=== PATIENT | female | born 1960 | race Caucasian/White ===

== ENCOUNTER 2023-08-13 09:51 | Outpatient (AMB) | payer OTHER, SELFPAY ==
--- NOTE | 2023-08-13 09:53 | A.OFFPC_ITS ---
Vital Signs 08/13/23 09:54 Height 5 ft 3 in Weight 156 lb 2 oz BMI 27.7 BP 138/84 Blood Pressure Location Lt brachial Position Sitting Pulse 91 Pulse Source Pulse Oximeter Pulse Oximetry (%) 95 Oxygen Delivery Method Room Air Intake Visit Reasons: New patient-req physical Intake Note: Pt presents to the office today for a new patient requesting a physical. Allergies No Known Allergies Allergy (Verified 08/13/23 09:56) Tobacco use date assessed: 08/13/23 Fall risk assessment: 1 Fall in past year Last assessed Fall Risk: 08/13/23 Dental Screening Dental Screen Date: 08/13/23 Did you have a dental visit in the last 12 months?: Yes Did you have a dental problem in the last 6 months where you did not have access to dental care?: No Was dental information given to patient?: Patient has dentist HPI New patient-req physical HPI Details New patient Prior PCP: Dr Manriquez? [facility] Last office visit/CPE: >1 yr Acute issue(s): L posterior knee pain R great toe pain with safety shoes needed for work. PMHx: HLD, anxiety/depression, colon polyps followed q 3 years. SurgHx: FHx: Mom: HTN, HLD, Lymphoma. Dad: CAD, RI, Cardiac valves. DM, HTN, HLD SocHx: Smokes 5-6 a day. EtOH 1-2 drinks occasionally. No drugs. [facility] Medical History (Updated 08/13/23 @ 10:54 by Harry Fuller) High cholesterol Hx of mammogram (~2021) Surgical History (Updated 08/13/23 @ 10:22 by Karie Peterson MA) H/O colonoscopy (~2021) H/O removal of cyst Family History (Updated 08/13/23 @ 10:24 by Karie Peterson MA) Father Hypertension Diabetes High cholesterol Mother Hypertension Lymphoma Thyroid disorder Social History (Updated 08/13/23 @ 09:58 by Karie Peterson MA) Household Members: None Housing: House Alcohol intake: current Alcohol intake frequency: holidays/special occasions only Patient Tobacco Use Status: Current everyday Tobacco user Cigarettes Per Day: 6 Years Smoked: 12 Current occupational status: employed 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 1. Little interest or pleasure in doing things: not at all 2. Feeling down, depressed, or hopeless: not at all 3. Trouble falling or staying asleep, or sleeping too much: several days 4. Feeling tired or having little energy: more than half the days 5. Poor appetite or overeating: not at all 6. Feeling bad about yourself - or that you are a failure or have let yourself or your family down: several days 7. Trouble concentrating on things, such as reading the newspaper or watching television: not at all 8. Moving or speaking so slowly that other people could have noticed. Or the opposite - being so fidgety or restless that you have been moving around a lot more than usual: not at all 9. Thoughts that you would be better off or of hurting yourself in some way: not at all Total score: 4 Depression Screening Interpretation: Negative Depression Screening Done: Yes 95582 - PHQ-9 Billing: Yes Source: Developed by Drs. Manuel Abdul, Lucretia Kumar, Sean Jurado and colleagues, with an educational shivam from [employer]. Thrive Questionnaire Date Thrive assessed: 08/13/23 I am a: Patient What is your living situation today?: I have a steady place to live Within the past 12 months, did the food you bought not last and you didn't have the money to get more?: Never true Within the past 12 months, did you worry whether your food would run out before you got money to buy more?: Never true Do you have trouble paying for medicines?: No Do you have trouble getting transportation to medical appointments?: No Do you have trouble paying your heating and electricity bill?: No Do you have trouble taking care of your child, family member or friend?: No Do you have trouble with day-to-day activities such as bathing, preparing meals, shopping, managing finances, etc.?: No Are you currently unemployed and looking for a job?: No Are you interested in more education?: No THRIVE Score: 0 AUDIT C Alcohol Use Questionnaire (AUDIT-C) 1. How often do you have a drink containing alcohol?: Monthly or less 2. How many drinks containing alcohol do you have on a typical day when you are drinking?: 1 or 2 3. How often do you have six or more drinks on one occasion?: Never Total Score: 1 RON-7 AMB Questionnaire RON-7 Date RON - 7 assessed: 08/13/23 Feeling nervous, anxious, or on edge: 0 = Not at all Not being able to stop or control worryin = Not at all Worrying too much about different things: 1 = Several days Trouble relaxin = Not at all Being so restless that it is hard to sit still: 0 = Not at all Becoming easily annoyed or irritable: 1 = Several days Feeling afraid as if something awful might happen: 0 = Not at all Total RON-7 score (0-4 normal; 5-9 mild; 10-14 moderate; 15-21 severe): 2 Source: Developed by Drs. Manuel Abdul, Lucretia Kumar, Sean Jurado and colleagues, with an educational shivam from [employer]. RON-7 Assessment Billing RON-7 Assessment Tool: RON-7 Assessment 06805 Physical exam (Primary Care) Vital Signs: Last Vital Signs Pulse 91 08/13/23 09:54 BP 138/84 08/13/23 09:54 Pulse Ox 95 08/13/23 09:54 Oxygen Delivery Method Room Air 08/13/23 09:54 BMI result Body Mass Index 27.7 Tobacco/Smoking Status: Tobacco use Status Tobacco use date assessed 08/13/23 08/13/23 10:03 Patient Tobacco Use Status Current everyday Tobacco 08/13/23 10:03 PHQ-9: PHQ-9 Score PHQ-9: Total score 4 08/13/23 10:32 Depression Screening Interpretation: Negative Thrive Assessment: Date of Thrive Assessment Date Thrive assessed 08/13/23 08/13/23 10:03 Assessment and Plan Assessment & Plan (1) Left knee pain: Code(s): M25.562 - Pain in left knee Plan: Possible?Mcwilliams's?cyst?versus?varicosity?verses?chronic?muscle?strain/tendinitis. Check?ultrasound?to?rule?out?varicosity?or?Mcwilliams's?cyst May?need?physical?therapy Can?use?ibuprofen?and?compression?stockings (2) Smoker: Code(s): F17.200 - Nicotine dependence, unspecified, uncomplicated Plan: She?is?working?on?quitting.??Already?taking?bupropion Encouraged?cessation (3) Anxiety with depression: Code(s): F41.8 - Other specified anxiety disorders Plan: Stable Continue?bupropion (4) Hyperlipidemia: Code(s): E78.5 - Hyperlipidemia, unspecified Plan: She?is?on?atorvastatin Check?lipid (5) Screening for colon cancer: Code(s): Z12.11 - Encounter for screening for malignant neoplasm of colon Plan: History?of?polyp?and?followed?Q?3?year Due?again?in?about?a?year?and?half Prior?gastroenter[place]so?will?need?a?local?referral. (6) Pain of right great toe: Code(s): M79.674 - Pain in right toe(s) Plan: Pain?at?lateral?aspect?of?right?great?toe?and?patient?needs?to?wear?safety?shoes ?at?work Referred?to?Podiatry (7) Wrist pain: Code(s): M25.539 - Pain in unspecified wrist Plan: Bilateral?wrist?and?forearm?pain Phalen?and?Tinel's?signs?negative Advised?wrist?braces?and?ibuprofen If?not?improving?will?refer?for?occupational?therapy (8) Posterior left knee pain: Code(s): M25.562 - Pain in left knee Plan: As?above (9) Laboratory exam ordered as part of routine general medical examination: Code(s): Z00.00 - Encounter for general adult medical examination without abnormal findings Plan: Check?labs (10) Breast cancer screening by mammogram: Code(s): Z12.31 - Encounter for screening mammogram for malignant neoplasm of breast Plan: Ordered mammogram Orders: Orders Lipid Panel Today Z00.00 - Encounter for general adult medical examination without abnormal findings Microalbumin, Random (w Creat) Today I10 - Essential (primary) hypertension US extremity nonvascular Today M25.562 - Pain in left knee Comprehensive [place]. Panel Fast Today Z00.00 - Encounter for general adult medical examination without abnormal findings Complete Blood Count Auto Diff Today Z00.00 - Encounter for general adult medical examination without abnormal findings TSH reflex Free T4 Today Z00.00 - Encounter for general adult medical examination without abnormal findings UA and rflx microscopic Today Z00.00 - Encounter for general adult medical examination without abnormal findings MM tomosynthesis screening BI Today Z12.31 - Encounter for screening mammogram for malignant neoplasm of breast Referrals Podiatry Referral M79.674 - Pain in right toe(s) Coding Level of Care Code New Pt Level 3 (89241) Diagnoses Left knee pain M25.562 Smoker F17.200 Anxiety with depression F41.8 Hyperlipidemia E78.5 Screening for colon cancer Z12.11 Pain of right great toe M79.674 Wrist pain M25.539 Posterior left knee pain M25.562 Laboratory exam ordered as part of routine general medical examination Z00.00 Breast cancer screening by mammogram Z12.31 Additional Codes RON-7 Assessment Billing - RON-7 Assessment Tool: RON-7 Assessment [id number] ([id number])
[2023-08-13 09:54] VITALS: BP 138/84; PULSE 91; O2SAT 95; BMI 27.7
== END 2023-08-13 10:56 | disposition home or self-care (01) ==
PROVIDERS: PCP Family Medicine; Visit Provider Family Medicine
DX: M25.562 Pain in left knee (principal); F17.210 Nicotine dependence, cigarettes, uncomplicated; F41.8 Other specified anxiety disorders; E78.5 Hyperlipidemia, unspecified; M25.532 Pain in left wrist; M79.674 Pain in right toe(s); M25.531 Pain in right wrist; Z12.11 Encounter for screening for malignant neoplasm of colon; Z12.31 Encounter for screening mammogram for malignant neoplasm of breast
CPT/HCPCS: 99203

== ENCOUNTER 2023-08-21 09:46 | Outpatient (REF) | payer OTHER, SELFPAY ==
[2023-08-21 11:31] LABS: MANUAL DIFF FLAG NO
[2023-08-21 11:40] LABS: Basophils Absolute Auto 0.1 X10*3/uL (0.0-0.2); Eosinophils Absolute Auto 0.3 X10*3/uL (0.0-0.4); Eosinophils Percent Auto 3.8 % (0-4); Hematocrit 42.5 % (37.0-47.0); Hemoglobin 14.2 g/dl (12.0-16.0); Imm Gran Abs Auto 0.02 X10*3/uL (0.00-0.03); Imm Gran Pct Auto 0.3 % (0.0-0.4); Lymphocytes Absolute Auto 2.9 X10*3/uL (1.2-4.9); Lymphocytes Percent Auto 37.6 % (20-40); Mean Corpuscular HGB Conc 33.4 g/dl (31.0-35.0); Mean Corpuscular Hemoglobin 31.7 pg (27.0-33.0); Mean Corpuscular Volume 94.9 fL (80.0-98.0); Mean Platelet Volume 9.1 fL (9.4-12.3); Monocytes Absolute Auto 0.8 X10*3/uL (0.1-1.2); Monocytes Percent Auto 9.8 % (2-11); Neutrophils Absolute Auto 3.7 x10*3/uL (2.0-8.3); Neutrophils Percent Auto 47.5 % (45-73); Platelet Count 370 X10*3/uL (160-400); Red Blood Count 4.48 X10*6/uL (4.20-5.50); Red Cell Distribution Width 12.8 % (11.0-16.0); White Blood Count 7.7 X10*3/uL (4.8-10.8)
[2023-08-21 12:07] LABS: Alanine Aminotransferase 22 U/L (0-31); Albumin Level 4.1 g/dL (3.5-5.0); Alkaline Phosphatase 58 U/L (39-117); Anion Gap 14 (12-20); Aspartate Amino Transferase 21 U/L (5-31); Bilirubin Total 0.7 mg/dL (0.0-1.0); Blood Urea Nitrogen 11 mg/dL (9-16); Calcium 9.5 mg/dL (8.4-10.2); Carbon Dioxide 27 mmol/L (22-29); Chloride 107 mmol/L (96-108); Cholesterol 142 mg/dL (<200); Estimated Glomerular Filt Rate > 60; Glucose Fasting 88 mg/dL (60-99); HDL Cholesterol 46 mg/dL (>40); LDL Cholesterol Calculated 77 mg/dL (<100); Potassium 3.8 mmol/L (3.3-5.1); Sodium 144 mmol/L (135-145); Total Protein 7.2 g/dL (6.5-8.0); Triglycerides 98 mg/dL (<150)
[2023-08-21 12:10] LABS: TSH reflex Free T4 1.86 uIU/mL (0.32-4.0)
== END 2023-08-21 09:47 | disposition home or self-care (01) ==
LOC: HO.WFDLDS 09:46
PROVIDERS: Visit Provider Family Medicine
DX: Z00.00 Encounter for general adult medical examination without abnormal findings (principal); Z20.2 Contact with and (suspected) exposure to infections with a predominantly sexual mode of transmission
CPT/HCPCS: 36415; 80053; 80061; 84443; 85025

== ENCOUNTER 2023-09-11 11:05 | Outpatient (REF) | payer OTHER, SELFPAY ==
[2023-09-11 14:09] LABS: Appearance Urine Clear; Color Urine Yellow; Glucose Urine UA Negative (Negative); Leukocyte Esterase Urine Trace (Negative); Nitrite Urine Negative (Negative); PH 6.5 (5.0-9.0); UMIC TRIGGER UA YES; Urine Blood Negative (Negative); Urine Ketones Negative (Negative); Urine Protein Negative (Neg-Trace)
[2023-09-11 14:15] LABS: Bacteria Urine None Seen (None Seen); Hyaline Casts Urine 0-2 /LPF (0-2); RBC Urine 0-2 /HPF (0-2); Squamous Epithelial Cell Urine 0-2 /HPF (0-2); WBC Urine 0-5 /HPF (0-5)
[2023-09-11 15:41] LABS: Creatinine Urine 57.88 mg/dL; Microalbumin Urine < 5.0 mg/L
== END 2023-09-11 11:06 | disposition home or self-care (01) ==
LOC: HO.WFDLDS 11:05
PROVIDERS: Visit Provider Family Medicine
DX: I10 Essential (primary) hypertension (principal)
CPT/HCPCS: 81001; 82043; 82570

== ENCOUNTER 2023-09-25 15:45 | Outpatient (REF) | payer OTHER, SELFPAY ==
--- NOTE | ~2023-09-25 | US_ITS ---
EXAMINATION: US EXTREMITY, NONVASCULAR CLINICAL INFORMATION: Posterior left knee pain COMPARISON: None available. TECHNIQUE: Real-time ultrasound used to scan the left posterior knee. Permanent documented images obtained. FINDINGS: No fluid collections identified. Patency of the popliteal artery and vein demonstrated. US/US extremity nonvascular IMPRESSION: Unremarkable examination.
== END 2023-09-25 15:46 | disposition home or self-care (01) ==
LOC: HO.US 15:45
PROVIDERS: PCP Family Medicine; Visit Provider Family Medicine
DX: M25.562 Pain in left knee (principal)
CPT/HCPCS: 76882

== ENCOUNTER 2023-10-02 15:06 | Outpatient (REF) | payer OTHER, SELFPAY ==
--- NOTE | ~2023-10-02 | MM_ITS ---
EXAMINATION: MM SCREENING DIGITAL BREAST TOMOSYNTHESIS, BILATERAL CLINICAL INFORMATION: Screening. Asymptomatic. COMPARISON: Mammography: There are no prior mammograms for comparison. TECHNIQUE: Digital breast tomosynthesis is performed in both the craniocaudal and mediolateral oblique views along with computer-aided detection (CAD). Synthesized 2D images are generated from the tomosynthesis. FINDINGS: The breasts are almost entirely fatty (ACR BI-RADS breast composition Category a). There are no significant masses, abnormal calcifications, or other abnormalities. MM/MM tomosynthesis screening BI IMPRESSION: No mammographic evidence of malignancy. ASSESSMENT: BI-RADS BI-RADS 1 - Negative RECOMMENDATION: Routine annual mammography screening. 1 year F/U This examination should not preclude the clinical evaluation of a suspicious palpable abnormality. This patient's information was entered into a reminder system with a target due date for their next mammogram.
== END 2023-10-02 15:07 | disposition home or self-care (01) ==
LOC: HO.MAMMO 15:06
PROVIDERS: PCP Family Medicine; Visit Provider Family Medicine
DX: Z12.31 Encounter for screening mammogram for malignant neoplasm of breast (principal)
CPT/HCPCS: 77063; 77067

== ENCOUNTER → 2023-10-02 15:15 | Outpatient (BNV) | payer OTHER, SELFPAY | PROVIDERS: PCP Family Medicine; Visit Provider Radiology Diagnostic Radiology | DX: Z12.31 Encounter for screening mammogram for malignant neoplasm of breast (principal) | CPT/HCPCS: 77063; 77067 ==

== ENCOUNTER 2023-12-11 11:54 | Outpatient (AMB) | payer OTHER, SELFPAY ==
--- NOTE | 2023-12-11 11:57 | A.OFFPC_ITS ---
Vital Signs 12/11/23 11:58 Height 5 ft 3 in Weight 148 lb 2 oz BMI 26.2 BP 118/75 Blood Pressure Location Lt brachial Position Sitting Pulse 80 Pulse Source Pulse Oximeter Pulse Oximetry (%) 97 Oxygen Delivery Method Room Air Intake Visit Reasons: CPE with f/u labs and health maint. Intake Note: Patient is here for her physical today, and follow up on labs and health maint enance. Patient would like refills on her meds today. Allergies No Known Allergies Allergy (Verified 12/11/23 12:22) Medication List - Last Reconciled 12/11/23 by Mane Muñiz MD atorvastatin 20 mg PO DAILY bupropion HCl XL 300 mg PO QAM Tobacco use date assessed: 12/11/23 Fall risk assessment: No Falls in past year Last assessed Fall Risk: 12/11/23 Dental Screening Dental Screen Date: 08/13/23 HPI CPE with f/u labs and health maint. HPI Details 63 y/o female presents for a CPE with f/ u labs and health maintenance. Labs were drawn 08/21/23. Reviewed labs with pt. Triglycerides 98. TC 142. LDL 77. HDL 46. She is on artovastatin 20mg daily. She reports she continues to smoke about 6 cigarettes a day. She states she is motivated to quit. Pt reports L knee pain. [facility] Medical History (Updated 12/11/23 @ 13:33 by Harry Fuller) High cholesterol Hx of mammogram (~2021) Surgical History (Updated 08/13/23 @ 10:22 by Karie Peterson CMA) H/O colonoscopy (~2021) H/O removal of cyst Family History (Updated 08/13/23 @ 10:24 by Karie Peterson CMA) Father Hypertension Diabetes High cholesterol Mother Hypertension Lymphoma Thyroid disorder Social History (Updated 08/13/23 @ 09:58 by Karie Peterson CMA) Household Members: None Housing: House Alcohol intake: current Alcohol intake frequency: holidays/special occasions only Patient Tobacco Use Status: Current everyday Tobacco user Cigarettes Per Day: 6 Years Smoked: 12 e-Cigarette/Vaping Use: Never Used Current occupational status: employed 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 1. Little interest or pleasure in doing things: not at all 2. Feeling down, depressed, or hopeless: not at all 3. Trouble falling or staying asleep, or sleeping too much: not at all 4. Feeling tired or having little energy: not at all 5. Poor appetite or overeating: not at all 6. Feeling bad about yourself - or that you are a failure or have let yourself or your family down: not at all 7. Trouble concentrating on things, such as reading the newspaper or watching television: not at all 8. Moving or speaking so slowly that other people could have noticed. Or the opposite - being so fidgety or restless that you have been moving around a lot more than usual: not at all 9. Thoughts that you would be better off or of hurting yourself in some way: not at all Total score: 0 Depression Screening Interpretation: Negative Depression Screening Done: Yes 25792 - PHQ-9 Billing: Yes Source: Developed by Drs. Manuel Abdul, Lucretia Kumar, Sean Jurado and colleagues, with an educational shivam from [employer]. Thrive Questionnaire Date Thrive assessed: 08/13/23 I am a: Patient What is your living situation today?: I have a steady place to live Within the past 12 months, did the food you bought not last and you didn't have the money to get more?: Never true Within the past 12 months, did you worry whether your food would run out before you got money to buy more?: Never true Do you have trouble paying for medicines?: No Do you have trouble getting transportation to medical appointments?: No Do you have trouble paying your heating and electricity bill?: No Do you have trouble taking care of your child, family member or friend?: No Do you have trouble with day-to-day activities such as bathing, preparing meals, shopping, managing finances, etc.?: No Are you currently unemployed and looking for a job?: No Are you interested in more education?: No THRIVE Score: 0 AUDIT C Alcohol Use Questionnaire (AUDIT-C) 1. How often do you have a drink containing alcohol?: Monthly or less 2. How many drinks containing alcohol do you have on a typical day when you are drinking?: 1 or 2 3. How often do you have six or more drinks on one occasion?: Never Total Score: 1 RON-7 AMB Questionnaire RON-7 Date RON - 7 assessed: 08/13/23 Feeling nervous, anxious, or on edge: 0 = Not at all Not being able to stop or control worryin = Not at all Worrying too much about different things: 0 = Not at all Trouble relaxin = Not at all Being so restless that it is hard to sit still: 0 = Not at all Becoming easily annoyed or irritable: 0 = Not at all Feeling afraid as if something awful might happen: 0 = Not at all Total RON-7 score (0-4 normal; 5-9 mild; 10-14 moderate; 15-21 severe): 0 Source: Developed by Drs. Manuel Abdul, Lucretia Kumar, Sean Jurado and colleagues, with an educational shivam from [employer]. RON-7 Assessment Billing RON-7 Assessment Tool: RON-7 Assessment 59908 Review of Systems Const Denies chills, Denies fatigue, Denies fever(s), Denies headache(s) and Denies weakness Eyes Denies change in vision ENT Denies dizziness, Denies headache(s), Denies hearing loss, Denies nasal congestion, Denies sinus pain, Denies sinus pressure and Denies sore throat Card Denies chest pain, Denies lightheadedness, Denies dyspnea and Denies other (palpitations) Resp Denies cough, Denies dyspnea and Denies wheezing GI Denies abdominal pain, Denies melena, Denies hematochezia, Denies change in bowel habits, Denies dyspepsia and Denies nausea Denies hematuria and Denies dysuria Musc Details: L knee pain Denies abnormal gait, Denies myalgias, Denies arthralgias, Denies numbness and Denies tingling Skin/Breast Denies rash, Denies unusual bruising and Denies wounds Neuro Denies abnormal gait, Denies dizziness, Denies headache(s), Denies memory loss, Denies numbness, Denies Sensory deficit (Neuro), Denies tingling and Denies weakness Psych Denies anxiety, Denies depression and Denies memory loss Endo Denies cold intolerance, Denies fatigue, Denies heat intolerance, Denies polydipsia and Denies polyuria Chao/Lymph Denies easy bleeding and Denies easy bruising Aller/Immun Denies wheezing Physical exam (Primary Care) Vital Signs: Last Vital Signs Pulse 80 12/11/23 11:58 BP 118/75 12/11/23 11:58 Pulse Ox 97 12/11/23 11:58 Oxygen Delivery Method Room Air 12/11/23 11:58 BMI result Body Mass Index 26.2 Tobacco/Smoking Status: Tobacco use Status Tobacco use date assessed 12/11/23 12/11/23 12:30 Patient Tobacco Use Status Current everyday Tobacco 12/11/23 11:59 e-Cigarette/Vaping Use Never Used 12/11/23 12:30 PHQ-9: PHQ-9 Score PHQ-9: Total score 0 12/11/23 12:30 Depression Screening Interpretation: Negative Thrive Assessment: Date of Thrive Assessment Date Thrive assessed 08/13/23 12/11/23 11:59 Const General: no acute distress, well developed, alert and awake Nutritional Appearance: well nourished Orientation/consciousness: patient oriented x3 HENMT Head: Yes normocephalic and Yes atraumatic Ears: hearing grossly normal bilaterally and TM's normal bilaterally General nose exam: Normal external nose present and Normal nares present Mouth: Normal oral and palatal mucosa present and moist mucous membranes Teeth and gingiva: dentition normal Throat: Yes posterior oropharynx normal Eyes General: appearance normal, both eyes and all related structures Pupils: Equal, round and reactive pupils present and Pupil accommodation reflex normal EOM: EOMs intact bilaterally Neck Neck: Yes normal visual inspection, Yes no lymphadenopathy and Yes trachea midline Thyroid: Thyroid normal Carotids: no bruits Lymphatic: no lymphadenopathy noted Chest Chest palpation & inspection: normal inspection of the chest Resp Other: Distant/coarse breath sounds Effort & Inspection: normal respiratory effort Auscultation: clear to auscultation bilaterally Cardio Rate: regular rate Rhythm: regular rhythm Heart sounds: S1 normal heart sound present, S2 normal heart sound present, no gallops, no murmurs and no rubs Bruits: no abdominal aortic bruits and no carotid bruits GI Palpation (GI): No Abdominal aortic bruit present, Soft to palpation, nontender, No hepatosplenomegaly present and No Rebound tenderness present Auscultation: normal bowel sounds General: Yes no CVA tenderness Back/Spine/Pelvis Back: no CVA tenderness Cervical Spine: cervical ROM normal and No Cervical spine tenderness Thoracic/Lumbar Spine: thoraco-lumbar ROM normal, No pain with thoraco-lumbar ROM, No thoracic spinal tenderness and No lumbar spinal tenderness Skin Lesions: no lesions Rashes: no rashes Trauma: no lacerations or abrasions Wounds: no wounds Nails: normal Neuro General: patient oriented x3 Cranial nerves: Yes Equal, round and reactive pupils present Cognition (Neuro): normal cognition Gait exam (Neuro): Normal gait present Motor exam (neuro): 5/5 motor strength present throughout Sensory Exam: No Sensory deficit (Neuro) Deep tendon reflexes (DTR's): Right patellar reflex intensity grade: 2+ and Left patellar reflex intensity grade: 2+ Extrem General: Yes normal to inspection and No edema Psych Appearance: grossly normal Affect: normal affect Attitude: cooperative Thought process: Normal thought process present Assessment and Plan Assessment & Plan (1) Adult general medical exam: Code(s): Z00.00 - Encounter for general adult medical examination without abnormal findings Plan: 63-year-old?female?presents?for?complete?physical?exam Encourage?healthy?diet?with?active?lifestyle?and?plenty?of?exercise (2) Hyperlipidemia: Code(s): E78.5 - Hyperlipidemia, unspecified Plan: Cholesterol?levels?all?well?controlled?on?atorvastatin Continue?current?medication (3) Screening for colon cancer: Code(s): Z12.11 - Encounter for screening for malignant neoplasm of colon Plan: Patient?has?uncertain?when?she?needs?follow-up?for?colonoscopy 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[facility] Referred?to?GI (4) Breast cancer screening by mammogram: Code(s): Z12.31 - Encounter for screening mammogram for malignant neoplasm of breast Plan: Mammogram?showed?no?evidence?of?malignancy Will?continue?annual?screen (5) Smoker: Code(s): F17.200 - Nicotine dependence, unspecified, uncomplicated Plan: Patient?has?smoked?equivalent of?20?pack?years?per?day?and?has?had?a?low- dose?CT?[place] Encouraged?cessation Will?resume?LDCT Will?give?patient?script?for?nicotine?gum (6) Left knee pain: Code(s): M25.562 - Pain in left knee Plan: Ongoing?left?knee?pain Referred?to?Ortho (7) Screening for cervical cancer: Code(s): Z12.4 - Encounter for screening for malignant neoplasm of cervix Plan: Referred?to?clerk entry level Orders: Referrals Orthopedics Referral M25.562 - Pain in left knee Gastroenterology Referral Z12.11 - Encounter for screening for malignant neoplasm of colon [employer] Referral Z12.4 - Encounter for screening for malignant neoplasm of cervix Medications: New nicotine (polacrilex) (Nicorette) 2 mg buccal Q2H 28 days 110 ea 2RF F17.200 - Nicotine dependence, unspecified, uncomplicated Changed From bupropion HCl XL 300 mg PO QAM To bupropion HCl XL 300 mg (2 x 150 mg) PO QAM 90 days 180 tabs 3RF From atorvastatin 20 mg PO DAILY To atorvastatin 20 mg PO DAILY 90 days 90 tabs 3RF Coding Level of Care Code Est Pt Level 3 (44734) Est Pt Prev Care 40-64y(90164) Diagnoses Adult general medical exam Z00.00 Hyperlipidemia E78.5 Screening for colon cancer Z12.11 Breast cancer screening by mammogram Z12.31 Smoker F17.200 Left knee pain M25.562 Screening for cervical cancer Z12.4 Additional Codes RON-7 Assessment Billing - RON-7 Assessment Tool: RON-7 Assessment 53122 ([id number])
[2023-12-11 11:58] VITALS: BP 118/75; PULSE 80; O2SAT 97; BMI 26.2
== END 2023-12-11 13:44 | disposition home or self-care (01) ==
PROVIDERS: PCP Family Medicine; Visit Provider Family Medicine
DX: Z00.00 Encounter for general adult medical examination without abnormal findings (principal); M25.562 Pain in left knee; E78.5 Hyperlipidemia, unspecified; F17.210 Nicotine dependence, cigarettes, uncomplicated; Z12.11 Encounter for screening for malignant neoplasm of colon; Z12.31 Encounter for screening mammogram for malignant neoplasm of breast
CPT/HCPCS: 99213; 99396

== ENCOUNTER 2024-01-15 08:31 | Outpatient (REF) | payer OTHER, SELFPAY ==
--- NOTE | ~2024-01-15 | XR_ITS ---
EXAMINATION: XR KNEE, LEFT XR LIMITED RIGHT KNEE CLINICAL INFORMATION: Pain in the knee. COMPARISON: None available. TECHNIQUE: 4 views of the left knee. AP upright views of both knees with additional lateral and patella views of the left knee. FINDINGS: Right Knee Limited: The medial and lateral compartments are normal. Cannot assess patellofemoral compartment. Surrounding bone and soft tissues normal. Left Knee: The bones, joints and soft tissues are normal without arthrosis. No effusion. XR/XR knee LT 3V IMPRESSION: RIGHT KNEE: Normal. LEFT KNEE: Normal.
== END 2024-01-15 08:32 | disposition home or self-care (01) ==
LOC: HO.HOSX 08:31
PROVIDERS: Visit Provider Physician Assistant
DX: M25.562 Pain in left knee (principal)
CPT/HCPCS: 73562

== ENCOUNTER 2024-01-15 09:42 | Outpatient (AMB) | payer OTHER, SELFPAY ==
--- NOTE | 2024-01-15 09:46 | MHC.OFFVIS ---
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 Patient reports that her pain has been ongoing for about a year. She moved here from [place], her new job is 12 hour shifts and mostly standing in one spot. When she gets home from work that is when her pain is at it's worse. Her symptoms include sharp pain with bending and stiffness with gait initiation after prolonged sitting and prolonged standing. She says if it wasn't for my right knee I would not be able to stand up after doing a deep bend. She enjoys hiking but her PCP advised her to not do too much until she followed up with orthopedics. She is able to find relief taking ibuprofen. Denies recent injury to the left knee, numbness, and tingling. Would be interested in discussing a referral to PT. 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 The patient was seen by her PCP on 12/11/2023 with a complaint of ongoing pain. ? ? While in the office today, the patient reports her pain has been ongoing for about a year. She states the pain is the worst when she gets home from work. She describes her pain as sharp with bending and having stiffness with gait initiation after prolonged sitting or prolonged standing. She denies any known injury, numbness, or tingling. She states she finds relief with ibuprofen. ? ? Patient reports she moved here from [place] and works 12 hour shifts at her job. She states when working she mostly stands in one spot. ? ? Patient reports she was told by her PCP to decrease hiking until further evaluated. ? 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 [employer] Cognitive needs: No Hearing needs: No Vision needs: Yes Review of Systems Const All systems reviewed & are unremarkable except as noted in HPI and below Physical Exam Vital Signs: BMI result Body Mass Index 26.6 Const General: cooperative and no acute distress Orientation/consciousness: patient oriented x3 Resp Effort & Inspection: normal respiratory effort and able to speak in complete sentences Cardio Peripheral pulses: Peripheral pulses 2+ throughout Skin General skin exam: no rashes or lesions noted Neuro General: patient oriented x3 Extrem Other: Left knee: Normal to inspection. No ecchymosis, erythema, or joint effusion. No tenderness to palpation along the medial or lateral joint lines. Full knee extension and flexion. Mild crepitus felt with ROM. NVI.? Assessment & Plan Assessment & Plan (1) Osteoarthritis of left knee: Code(s): M17.12 - Unilateral primary osteoarthritis, left knee Category: Medical Plan Ms. Rosado is a 63-year-old female who presents in the office today, as a new patient, for an evaluation of left knee pain. The patient was seen by her PCP on 12/11/2023 with a complaint of ongoing pain. ? ? While in the office today, the patient reports her pain has been ongoing for about a year. She states the pain is the worst when she gets home from work. She describes her pain as sharp with bending and having stiffness with gait initiation after prolonged sitting or prolonged standing. She denies any known injury, numbness, or tingling. She states she finds relief with ibuprofen. ? ? Patient reports she moved here from [place] and works 12 hour shifts at her job. She states when working she mostly stands in one spot. ? ? Patient reports she was told by her PCP to decrease hiking until further evaluated.? ? The patient would like to attend physical [facility] in [place]. A referral was placed in the office today. We discussed the role of cortisone injection; however, she only has mild?symptoms in the office today, therefore, I do not feel this is warranted and we have agreed to defer. Follow-up will be PRN, or sooner if needed. ? ? X-rays of the left knee which were obtained while in the office today and were reviewed by me, Jessica Mayer PA-C, revealed mild arthritic changes. ? Orders: Orders PT Evaluation and Treatment Today M17.12 - Unilateral primary osteoarthritis, left knee XR knee LT 3V Today M25.569 - Pain in unspecified knee Patient Instructions: Scribed by Jacque Peoples, certified medical dosimetrist, for Jessica Mayer PA-C on 01/15/2024 at 10:06 am, EST.? Coding Level of Care Code New Pt Level 3 (14875) Diagnoses Osteoarthritis of left knee M17.12
[2024-01-15 09:52] VITALS: BMI 26.6
== END 2024-01-15 10:21 | disposition home or self-care (01) ==
PROVIDERS: PCP Family Medicine; Visit Provider Physician Assistant
DX: M17.12 Unilateral primary osteoarthritis, left knee (principal)
CPT/HCPCS: 99203

== ENCOUNTER 2024-03-28 08:45 | Outpatient (AMB) | payer OTHER, SELFPAY ==
[2024-03-28 08:49] VITALS: BP 120/72; BMI 26.6
--- NOTE | 2024-03-28 08:49 | A.OFFVIS_ITS ---
Vital Signs 03/28/24 08:49 Height 5 ft 3 in Weight 150 lb BMI 26.6 BP 120/72 Intake Visit Reasons: New patient Annual/DO NOT RS Intake Note: no concerns Sales Manager Required: No Information Interpreted: non-clinical & clinical [place]ia[place]ina Kura [place] Maori: Kaiawhina Kura [place] Maori Present (Makayla Ge ASH) Accompanied by: Self / Same As Patient Allergies No Known Allergies Allergy (Verified 03/28/24 08:52) Post menopausal: Yes HPI Comments Details: Presenting for annual exam. No complaints. Last Pap/HPV was many years ago Last Mammogram was BI-RADS 1 in 10/20 Last Colonoscopy was done in 2019, the recommendation according to the patient was to repeat in 5 years, no reports available No previous DEXA scan PFSH Medical History High cholesterol Hx of mammogram (~2021) Surgical History H/O colonoscopy (~2021) H/O removal of cyst Family History Father Hypertension Diabetes High cholesterol Mother Hypertension Lymphoma Thyroid disorder Social History Household Members: None Housing: House Alcohol intake: current Alcohol intake frequency: holidays/special occasions only Patient Tobacco Use Status: Current everyday Tobacco user Cigarettes Per Day: 6 Years Smoked: 12 e-Cigarette/Vaping Use: Never Used Current occupational status: employed 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 Cognitive needs: No Hearing needs: No Vision needs: Yes Female Reproductive History Menstrual Menopause type: natural Total pregnancies: 3 Full term: 3 Number of Living Children: 3 Date of Mammogram: 10/02/23 Review of Systems Const All systems reviewed & are unremarkable except as noted in HPI and below Card Reports as per HPI Resp Reports as per HPI GI Reports as per HPI and Reports no additional complaints Reports as per HPI Physical Exam Vital Signs: Last Vital Signs BP 120/72 03/28/24 08:49 BMI result Body Mass Index 26.6 Const General: cooperative, healthy appearing and comfortable Chest Chest palpation & inspection: normal inspection of the chest and normal palpation of entire chest wall Breast/axilla inspection: normal inspection of the breasts and normal inspection of the axillae Breast/axilla palpation: normal palpation of the breasts, normal palpation of the axillae and no axillary lymphadenopathy Resp Effort & Inspection: normal respiratory effort Auscultation: clear to auscultation bilaterally Percussion: percussion normal Cardio Palpation: normal PMI Rate: regular rate Rhythm: regular rhythm Heart sounds: no murmurs and no rubs Peripheral pulses: Peripheral pulses 2+ throughout GI Inspection: Yes normal to inspection Palpation (GI): Soft to palpation, nontender, no guarding, not rigid and No hepatosplenomegaly present Percussion: Yes normal to percussion Auscultation: normal bowel sounds Rectal Exam - Female: deferred General: Yes bladder normal to palpation External Female Exam: No lesion Speculum Exam - Vagina: normal appearance of the vagina, normal palpation, normal vaginal discharge and not erythematous Speculum Exam - Cervix: normal appearance of the cervix and normal palpation Bimanual exam- vagina & uterus: normal bimanual exam, normal palpation, uterine size normal, bladder normal to palpation, consistency normal and normal palpation Bimanual Exam- Adnexa, other: normal adnexae, no masses and no tenderness Assessment & Plan Assessment & Plan (1) Well woman exam: Code(s): Z01.419 - Encounter for gynecological examination (general) (routine) without abnormal findings Category: Medical Plan: Co testing done. Counseled the patient about the recommended dietary allowance of 1200 mg of Calcium & 600 IU of vitamin D. Instructions given to patient to schedule next screening Mammogram in 10/20. The patient was instructed to perform monthly self-breast exams and schedule annual exam in a year. All questions answered and the patient verbalized understanding. Coding Level of Care Code New Pt Prev Care 40-64y(58191) Diagnoses Well woman exam Z01.419
== END 2024-03-28 09:15 | disposition home or self-care (01) ==
LOC: HO.HWS 08:46
PROVIDERS: PCP Family Medicine; Visit Provider Obstetrics & Gynecology
DX: Z01.419 Encounter for gynecological examination (general) (routine) without abnormal findings (principal)
CPT/HCPCS: 99386

== ENCOUNTER 2024-03-28 08:45 | Outpatient (REF) | payer OTHER, SELFPAY ==
[2024-03-31 13:32] LABS: HPV mRNA E6/E7 Not Detected (Not Detected)
== END 2024-03-28 08:46 | disposition home or self-care (01) ==
LOC: HO.LNP 08:45
PROVIDERS: PCP Family Medicine; Visit Provider Obstetrics & Gynecology
DX: Z01.419 Encounter for gynecological examination (general) (routine) without abnormal findings (principal)
CPT/HCPCS: 87624; 88175

== ENCOUNTER 2024-04-01 09:00 | Outpatient (RCR) | payer OTHER, SELFPAY | END 2024-08-01 07:33 | disposition home or self-care (01) | LOC: HO.PTWFD 09:00 | PROVIDERS: PCP Family Medicine; Visit Provider Physician Assistant | DX: M17.12 Unilateral primary osteoarthritis, left knee (principal) | CPT/HCPCS: 97110; 97140; 97161; 97530; 97535 ==

== ENCOUNTER 2024-04-21 10:15 | Outpatient (AMB) | payer OTHER, SELFPAY ==
[2024-04-21 10:38] VITALS: BMI 26.6
--- NOTE | 2024-04-21 10:38 | A.OFFVIS_ITS ---
Vital Signs 04/21/24 10:38 Height 5 ft 3 in Weight 149 lb 14.629 oz BMI 26.6 Intake Visit Reasons: Colposcopy Adjunct Instructor Required: No Information Interpreted: non-clinical & clinical Lead Java Programmer: Lead Java Programmer Present (Makayla Ge ASH) Accompanied by: Self / Same As Patient Allergies No Known Allergies Allergy (Verified 04/21/24 10:39) HPI Comments Details: Presenting for colposcopy for LSIL HPV negative [facility] Medical History High cholesterol Hx of mammogram (~2021) Surgical History H/O colonoscopy (~2021) H/O removal of cyst Family History Father Hypertension Diabetes High cholesterol Mother Hypertension Lymphoma Thyroid disorder Social History Household Members: None Housing: House Alcohol intake: current Alcohol intake frequency: holidays/special occasions only Patient Tobacco Use Status: Current everyday Tobacco user Cigarettes Per Day: 6 Years Smoked: 12 e-Cigarette/Vaping Use: Never Used Current occupational status: employed 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 We thoroughly discussed the procedure itself, including its details, a lternatives, and all associated risks. This included but not limited to the following complications such as bleeding, infection, and injury to the vagina, bladder, and vessels, as well as the potential need for transfusion with all its associated risks. Subsequently, the patient sign the consent. Pap smear result: LSIL. Procedure: During the procedure, the following steps were performed: A speculum was inserted, and acetic acid was applied. Colposcopy was conducted, allowing visualization of the transformation zone. Acetowhite lesions were identified at the 6+11+12+3 o'clock position. Cervical biopsies were obtained from the 6+11+12+3 o'clock position, followed by an endocervical curettage (ECC). Vaginoscopy of the upper vagina revealed no evidence of aceto-white lesions. Hemostasis was achieved using Monsel solution, and the patient tolerated the procedure well. Post-Procedure Instructions: The patient was advised to promptly contact the office or the after hours answering service or go to the emergency room if experiencing a temperature exceeding 100.4?F, abdominal pain, nausea/vomiting, or bleeding. Additionally, the patient was instructed to abstain from vaginal intercourse and bathtub use. The patient confirmed understanding of these instructions. Discharge Instructions: The patient was instructed to schedule a follow-up appointment in 2 weeks for further evaluation and management. Please note that this note was generated using a voice recognition program, and errors may have occurred during hvac r instructor. 99019-Hvtcfshof of cervix including upper vagina with biopsy and ECC Procedure code (CPT) selection complete Assessment & Plan Assessment & Plan (1) LGSIL on Pap smear of cervix: Code(s): R87.612 - Low grade squamous intraepithelial lesion on cytologic smear of cervix (LGSIL) Category: Medical Plan: Colpo done, see procedure note Orders: Orders AMB Colposcopy Today R87.612 - Low grade squamous intraepithelial lesion on cytologic smear of cervix (LGSIL) Coding Level of Care Code Procedure Only Diagnoses LGSIL on Pap smear of cervix R87.612 CPT Codes Colposcopy - CPT: 98142-Coetfkupg of cervix including upper vagina with biopsy and ECC ([id number])
== END 2024-04-21 10:55 | disposition home or self-care (01) ==
PROVIDERS: PCP Family Medicine; Visit Provider Obstetrics & Gynecology
DX: R87.612 Low grade squamous intraepithelial lesion on cytologic smear of cervix (LGSIL) (principal)
CPT/HCPCS: 57454

== ENCOUNTER 2024-04-21 10:15 | Outpatient (REF) | payer OTHER, SELFPAY | END 2024-04-21 10:16 | disposition home or self-care (01) | LOC: HO.LNP 10:15 | PROVIDERS: PCP Family Medicine; Visit Provider Obstetrics & Gynecology | DX: R87.612 Low grade squamous intraepithelial lesion on cytologic smear of cervix (LGSIL) (principal); N87.0 Mild cervical dysplasia | CPT/HCPCS: 57454; 88305 ==

== ENCOUNTER 2024-05-30 07:35 | Outpatient (AMB) | payer OTHER, SELFPAY ==
[2024-05-30 07:40] VITALS: BP 122/82; BMI 26.6
--- NOTE | 2024-05-30 07:40 | A.OFFVIS_ITS ---
Vital Signs 05/30/24 07:40 Height 5 ft 3 in Weight 149 lb 14.629 oz BMI 26.6 BP 122/82 Intake Visit Reasons: colpo results Allergies No Known Allergies Allergy (Verified 04/21/24 10:39) HPI Comments Details: Presenting post colpo for follow-up. The patient is doing well with no complai nts. The pathology showed the following: A. Endocervix, curettage: Scant superficial strips of endocervical epithelium within normal limits. B. Cervix, 3 o'clock, biopsy: Scant superficial strips of endocervical epithelium within normal limits; mucoinflammatory material. C. Cervix, 6 o'clock, biopsy: Mildly inflamed endocervical squamous mucosa with reactive changes. D. Cervix, 11 o'clock, biopsy: - Low-grade squamous intraepithelial lesion (JESSICA 1). - Inflamed endocervical mucosa; otherwise within normal limits. D. Cervix, 12 o'clock, biopsy: Inflamed cervical transformation zone mucosa with reactive changes [facility] Medical History High cholesterol Hx of mammogram (~2021) Surgical History H/O colonoscopy (~2021) H/O removal of cyst Family History Father Hypertension Diabetes High cholesterol Mother Hypertension Lymphoma Thyroid disorder Social History Household Members: None Housing: House Alcohol intake: current Alcohol intake frequency: holidays/special occasions only Patient Tobacco Use Status: Current everyday Tobacco user Cigarettes Per Day: 6 Years Smoked: 12 e-Cigarette/Vaping Use: Never Used Current occupational status: employed 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 Cognitive needs: No Hearing needs: No Vision needs: Yes Review of Systems Const All systems reviewed & are unremarkable except as noted in HPI and below Reports as per HPI and Reports no additional complaints GI Reports no additional complaints Reports no additional complaints Physical Exam Vital Signs: Last Vital Signs BP 122/82 05/30/24 07:40 BMI result Body Mass Index 26.6 Assessment & Plan Assessment & Plan (1) Dysplasia of cervix, low grade (JESSICA 1): Code(s): N87.0 - Mild cervical dysplasia Category: Medical Plan: Discussed with the patient the pathology results of the colposcopy biopsies & endocervical curettage ( mild dysplasia-JESSICA 1). Discussed with the patient the sensitivity specificity, positive and negative predictive value in detecting cervical cancer in addition discussed the regression, persistence and progression rates. Recommended co-testing in 12 months, if cytology and or HPV are abnormal will proceed was colposcopy biopsy and endocervical curettage, if lesions gets worse or stays persistent for 2 years will proceed with loop electric excision procedure. Instructions given to the patient to schedule a co test appointment in 1 year. All questions answered the patient verbalized understanding. Coding Level of Care Code Est Pt Level 3 (90979) Diagnoses Dysplasia of cervix, low grade (JESSICA 1) N87.0
== END 2024-05-30 07:46 | disposition home or self-care (01) ==
LOC: HO.HWS 07:36
PROVIDERS: PCP Family Medicine; Visit Provider Obstetrics & Gynecology
DX: N87.0 Mild cervical dysplasia (principal)
CPT/HCPCS: 99213

== ENCOUNTER 2024-12-09 07:52 | Outpatient (REF) | payer BC, SELFPAY ==
[2024-12-09 10:56] LABS: MANUAL DIFF FLAG NO
[2024-12-09 11:02] LABS: Basophils Absolute Auto 0.1 X10*3/uL (0.0-0.2); Basophils Percent Auto 0.7 % (0-2); Eosinophils Absolute Auto 0.3 X10*3/uL (0.0-0.4); Eosinophils Percent Auto 3.4 % (0-4); Hematocrit 41.6 % (37.0-47.0); Hemoglobin 14.1 g/dl (12.0-16.0); Imm Gran Abs Auto 0.03 X10*3/uL (0.00-0.03); Imm Gran Pct Auto 0.3 % (0.0-0.4); Lymphocytes Absolute Auto 3.1 X10*3/uL (1.2-4.9); Lymphocytes Percent Auto 31.8 % (20-40); Mean Corpuscular HGB Conc 33.9 g/dl (31.0-35.0); Mean Corpuscular Hemoglobin 32.3 pg (27.0-33.0); Mean Corpuscular Volume 95.4 fL (80.0-98.0); Mean Platelet Volume 9.4 fL (9.4-12.3); Monocytes Absolute Auto 0.9 X10*3/uL (0.1-1.2); Monocytes Percent Auto 9.4 % (2-11); Neutrophils Absolute Auto 5.3 x10*3/uL (2.0-8.3); Neutrophils Percent Auto 54.4 % (45-73); Platelet Count 354 X10*3/uL (160-400); Red Blood Count 4.36 X10*6/uL (4.20-5.50); Red Cell Distribution Width 12.8 % (11.0-16.0); White Blood Count 9.8 X10*3/uL (4.8-10.8)
[2024-12-09 11:15] LABS: Appearance Urine Clear; Color Urine Yellow; Glucose Urine UA Negative (Negative); Leukocyte Esterase Urine Trace (Negative); Nitrite Urine Negative (Negative); Specific Gravity - Urine <= 1.005 (1.005-1.025); UMIC TRIGGER UA YES; Urine Blood Negative (Negative); Urine Ketones Negative (Negative); Urine Protein Negative (Neg-Trace)
[2024-12-09 11:18] LABS: Bacteria Urine None Seen (None Seen); Hyaline Casts Urine 0-2 /LPF (0-2); RBC Urine 0-2 /HPF (0-2); Squamous Epithelial Cell Urine 0-2 /HPF (0-2); WBC Urine 0-5 /HPF (0-5)
[2024-12-09 11:21] LABS: Alanine Aminotransferase 26 U/L (0-31); Albumin Level 4.6 g/dL (3.5-5.0); Alkaline Phosphatase 53 U/L (39-117); Anion Gap 11 (12-20); Aspartate Amino Transferase 28 U/L (5-31); Bilirubin Total 0.5 mg/dL (0.0-1.0); Blood Urea Nitrogen 13 mg/dL (9-16); Calcium 9.4 mg/dL (8.4-10.2); Carbon Dioxide 26 mmol/L (22-29); Chloride 108 mmol/L (96-108); Cholesterol 148 mg/dL (<200); Estimated Glomerular Filt Rate > 60; Glucose Fasting 79 mg/dL (60-99); HDL Cholesterol 51 mg/dL (>40); LDL Cholesterol Calculated 79 mg/dL (<100); Potassium 3.8 mmol/L (3.3-5.1); Sodium 141 mmol/L (135-145); Total Protein 7.1 g/dL (6.5-8.0); Triglycerides 93 mg/dL (<150)
[2024-12-09 11:32] LABS: TSH reflex Free T4 3.07 uIU/mL (0.32-4.0)
[2024-12-09 12:51] LABS: Creatinine Urine 7.87 mg/dL; Microalbumin Urine < 5.0 mg/L
== END 2024-12-09 07:53 | disposition home or self-care (01) ==
LOC: HO.WFDLDS 07:52
PROVIDERS: Visit Provider Family Medicine
DX: Z00.00 Encounter for general adult medical examination without abnormal findings (principal); Z12.4 Encounter for screening for malignant neoplasm of cervix; I10 Essential (primary) hypertension
CPT/HCPCS: 36415; 80053; 80061; 81001; 82043; 82570; 84443; 85025

== ENCOUNTER 2024-12-16 08:53 | Outpatient (AMB) | payer BC, SELFPAY ==
--- NOTE | 2024-12-16 09:08 | A.OFFPC_ITS ---
Vital Signs 12/16/24 09:11 12/16/24 09:15 Height 5 ft 3 in Weight 152 lb 4 oz BMI 27.0 BP 140/68 H 120/68 Blood Pressure Location Lt brachial Lt brachial Position Sitting Sitting Respiration 14 Pulse 88 Pulse Source Pulse Oximeter Temp 98.5 F Temp Source Oral Pulse Oximetry (%) 98 Oxygen Delivery Method Room Air Intake Visit Reasons: CPE with f/u labs and health maint. Intake Note: patient is scheduled for cpe. Patient also states she has small bumps on her c hest. 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 Is last menstrual period known: No Post menopausal: Yes Patient : No Allergies No Known Allergies Allergy (Verified 12/16/24 09:09) Medication List - Last Reconciled 12/16/24 by Mane Muñiz MD atorvastatin 20 mg PO DAILY 90 days bupropion HCl XL 300 mg (2 x 150 mg) PO QAM 90 days nicotine (polacrilex) (Nicorette) 2 mg buccal Q2H 28 days Tobacco use date assessed: 12/16/24 Fall risk assessment: No Falls in past year Last assessed Fall Risk: 12/16/24 Dental Screening Dental Screen Date: 12/16/24 Did you have a dental visit in the last 12 months?: Yes Did you have a dental problem in the last 6 months where you did not have access to dental care?: No Was dental information given to patient?: Patient has dentist HPI CPE with f/u labs and health maint. HPI Details 64 y/o female presents for a CPE with f/ u labs and health maint. Labs drawn 12/09/24. Reviewed labs with pt. Triglycerides 93. TC 148. LDL 79. HDL 51. She is on artovastatin 20mg daily. TSH 3.07. Has complaints of bumps on her skin, pruritic. Pt reports ongoing smoking. Has been trying to quit. Has been trying to eat a healthy diet. Has not been exercising much due to leg discomfort. HPI Comments History of Present Illness Details Documentation assistance for Mane Muñiz MD, was provided by Harry Fuller,Chyna Engineer System Administrator on 12/16/2024 at 9:49 AM EST. I, Dr. Muñiz, have read, observed, and verified documentation. 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 1. Little interest or pleasure in doing things: not at all 2. Feeling down, depressed, or hopeless: not at all 3. Trouble falling or staying asleep, or sleeping too much: several days 4. Feeling tired or having little energy: several days 5. Poor appetite or overeating: not at all 6. Feeling bad about yourself - or that you are a failure or have let yourself or your family down: not at all 7. Trouble concentrating on things, such as reading the newspaper or watching television: not at all 8. Moving or speaking so slowly that other people could have noticed. Or the opposite - being so fidgety or restless that you have been moving around a lot more than usual: not at all 9. Thoughts that you would be better off or of hurting yourself in some way: not at all Total score: 2 Depression Screening Interpretation: Negative Depression Screening Done: Yes 94957 - PHQ-9 Billing: Yes Source: Developed by Drs. Manuel Abdul, Lucretia Kumar, Sean Jurado and colleagues, with an educational shivam from [employer]. Thrive Questionnaire Date Thrive assessed: 12/15/24 I am a: Patient What is your living situation today?: I have a steady place to live Within the past 12 months, did the food you bought not last and you didn't have the money to get more?: Never true Within the past 12 months, did you worry whether your food would run out before you got money to buy more?: Never true Do you have trouble paying for medicines?: No Do you have trouble getting transportation to medical appointments?: No Do you have trouble paying your heating and electricity bill?: No Do you have trouble taking care of your child, family member or friend?: No Do you have trouble with day-to-day activities such as bathing, preparing meals, shopping, managing finances, etc.?: No Are you currently unemployed and looking for a job?: No Are you interested in more education?: No Please select the resources that you would like help with: None Currently or been in a relationship where the following occur: I choose not to answer THRIVE Score: 0 AUDIT C Alcohol Use Questionnaire (AUDIT-C) 1. How often do you have a drink containing alcohol?: Monthly or less 2. How many drinks containing alcohol do you have on a typical day when you are drinking?: 1 or 2 3. How often do you have six or more drinks on one occasion?: Never Total Score: 1 Score Reviewed/Action Taken: Yes RON-7 AMB Questionnaire RON-7 Date RON - 7 assessed: 12/16/24 Feeling nervous, anxious, or on edge: 0 = Not at all Not being able to stop or control worryin = Not at all Worrying too much about different things: 0 = Not at all Trouble relaxin = Not at all Being so restless that it is hard to sit still: 0 = Not at all Becoming easily annoyed or irritable: 0 = Not at all Feeling afraid as if something awful might happen: 0 = Not at all Total RON-7 score (0-4 normal; 5-9 mild; 10-14 moderate; 15-21 severe): 0 Source: Developed by Drs. Manuel Abdul, Lucretia Kumar, Sean Jurado and colleagues, with an educational shivam from [employer]. RON-7 Assessment Billing RON-7 Assessment Tool: RON-7 Assessment 30426 Review of Systems Const Denies chills, Denies fatigue, Denies fever(s), Denies headache(s) and Denies weakness Eyes Denies change in vision ENT Denies dizziness, Denies headache(s), Denies hearing loss, Denies nasal congestion, Denies sinus pain, Denies sinus pressure and Denies sore throat Card Denies chest pain, Denies lightheadedness, Denies dyspnea and Denies other (palpitations) Resp Denies cough, Denies dyspnea and Denies wheezing GI Denies abdominal pain, Denies melena, Denies hematochezia, Denies change in bowel habits, Denies dyspepsia and Denies nausea Denies hematuria and Denies dysuria Musc Denies abnormal gait, Denies myalgias, Denies arthralgias, Denies numbness and Denies tingling Skin/Breast Denies rash, Denies unusual bruising and Denies wounds Neuro Denies abnormal gait, Denies dizziness, Denies headache(s), Denies memory loss, Denies numbness, Denies Sensory deficit (Neuro), Denies tingling and Denies weakness Psych Denies anxiety, Denies depression and Denies memory loss Endo Denies cold intolerance, Denies fatigue, Denies heat intolerance, Denies polydipsia and Denies polyuria Chao/Lymph Denies easy bleeding and Denies easy bruising Aller/Immun Denies wheezing Physical exam (Primary Care) Vital Signs: Last Vital Signs Temp 98.5 F 12/16/24 09:11 Pulse 88 12/16/24 09:11 Resp 14 12/16/24 09:11 BP 120/68 12/16/24 09:15 Pulse Ox 98 12/16/24 09:11 Oxygen Delivery Method Room Air 12/16/24 09:11 BMI result Body Mass Index 27.0 Tobacco/Smoking Status: Tobacco use Status Tobacco use date assessed 12/16/24 12/16/24 09:15 Patient Tobacco Use Status Current everyday Tobacco 12/16/24 09:15 e-Cigarette/Vaping Use Never Used 12/16/24 09:15 PHQ-9: PHQ-9 Score PHQ-9: Total score 2 12/16/24 09:31 Depression Screening Interpretation: Negative Thrive Assessment: Date of Thrive Assessment Date Thrive assessed 12/15/24 12/16/24 09:15 Currently or been in a relationship where the following occur: I choose not to answer Const General: no acute distress, well developed, alert and awake Nutritional Appearance: well nourished Orientation/consciousness: patient oriented x3 [facility] Head: Yes normocephalic and Yes atraumatic Ears: hearing grossly normal bilaterally and TM's normal bilaterally General nose exam: Normal external nose present and Normal nares present Mouth: Normal oral and palatal mucosa present and moist mucous membranes Teeth and gingiva: dentition normal Throat: Yes posterior oropharynx normal Eyes General: appearance normal, both eyes and all related structures Pupils: Equal, round and reactive pupils present and Pupil accommodation reflex normal EOM: EOMs intact bilaterally Neck Neck: Yes normal visual inspection, Yes no lymphadenopathy and Yes trachea midline Thyroid: Thyroid normal Carotids: no bruits Lymphatic: no lymphadenopathy noted Chest Chest palpation & inspection: normal inspection of the chest Resp Other: Mildly distant breath sounds but otherwise clear Effort & Inspection: normal respiratory effort Auscultation: clear to auscultation bilaterally Cardio Rate: regular rate Rhythm: regular rhythm Heart sounds: S1 normal heart sound present, S2 normal heart sound present, no gallops, no murmurs and no rubs Bruits: no abdominal aortic bruits and no carotid bruits GI Palpation (GI): No Abdominal aortic bruit present, Soft to palpation, nontender, No hepatosplenomegaly present and No Rebound tenderness present Auscultation: normal bowel sounds General: Yes no CVA tenderness Back/Spine/Pelvis Back: no CVA tenderness Cervical Spine: cervical ROM normal and No Cervical spine tenderness Thoracic/Lumbar Spine: thoraco-lumbar ROM normal, No pain with thoraco-lumbar ROM, No thoracic spinal tenderness and No lumbar spinal tenderness Skin Lesions: no lesions Rashes: no rashes Trauma: no lacerations or abrasions Wounds: no wounds Nails: normal Neuro General: patient oriented x3 Cranial nerves: Yes Equal, round and reactive pupils present Cognition (Neuro): normal cognition Gait exam (Neuro): Normal gait present Motor exam (neuro): 5/5 motor strength present throughout Sensory Exam: No Sensory deficit (Neuro) Deep tendon reflexes (DTR's): Right patellar reflex intensity grade: 2+ and Left patellar reflex intensity grade: 2+ Extrem General: Yes normal to inspection and No edema Psych Appearance: grossly normal Affect: normal affect Attitude: cooperative Thought process: Normal thought process present Coding Level of Care Code Est Pt Level 3 (86281) Est Pt Prev Care >65y(51479) Diagnoses Adult general medical exam Z00.00 Hyperlipidemia E78.5 Screening for cervical cancer Z12.4 Neoplasm of uncertain behavior of skin D48.5 Left thigh pain M79.652 Immunization counseling Z71.85 Smoker F17.200 Breast cancer screening by mammogram Z12.31 Screening for colon cancer Z12.11 Screening for osteoporosis Z13.820 Additional Codes RON-7 Assessment Billing - RON-7 Assessment Tool: RON-7 Assessment 52906 ([id number]) PHQ-9 - 78182 - PHQ-9 Billing: Yes ([id number]) Assessment & Plan Assessment & Plan (1) Adult general medical exam: Code(s): Z00.00 - Encounter for general adult medical examination without abnormal findings Category: Medical Plan: 64-year-old?female?presents?for?complete?physical?exam Encouraged?healthy?diet?with?active?lifestyle?and?plenty?of?exercise (2) Hyperlipidemia: Code(s): E78.5 - Hyperlipidemia, unspecified Category: Medical Plan: Lipids?are?well?controlled?on?atorvastatin Continue?current?medication (3) Screening for cervical cancer: Code(s): Z12.4 - Encounter for screening for malignant neoplasm of cervix Category: Medical Plan: Has?follow-up?appointment?with?[facility]?earth observations chief scientist,??Vanesa (4) Neoplasm of uncertain behavior of skin: Code(s): D48.5 - Neoplasm of uncertain behavior of skin Category: Medical Plan: Fleshy Bumps on skin over sternum Referred?to?dermatology (5) Left thigh pain: Code(s): M79.652 - Pain in left thigh Category: Medical Plan: Fleshy bumps?on?anterior?chest?over?sternum with?mild?scale?and?some?irritation Referred?to?dermatology (6) Immunization counseling: Code(s): Z71.85 - Encounter for immunization safety counseling Category: Medical Plan: We?discussed?pneumonia?shots,?RSV,?COVID,?flu?and?shingles (7) Smoker: Code(s): F17.200 - Nicotine dependence, unspecified, uncomplicated Category: Social Hx Plan: Ongoing?smoking She?says?she?has?had low-dose?CT?screening?in?the?past Will?refer?her?to?[facility] lung?cancer?screening (8) Breast cancer screening by mammogram: Code(s): Z12.31 - Encounter for screening mammogram for malignant neoplasm of breast Category: Medical Plan: Mammogram?a?year?ago?was?negative?for?malignancies Advised?her?to?schedule?her?next?appointment (9) Screening for colon cancer: Code(s): Z12.11 - Encounter for screening for malignant neoplasm of colon Category: Medical Plan: She?has?an?upcoming?appointment?with?Gastroenterology?in?January (10) Screening for osteoporosis: Code(s): Z13.820 - Encounter for screening for osteoporosis Category: Medical Plan: Due?for?screening?for?osteoporosis Bone?density?test?is?ordered Orders: Orders PT Evaluation and Treatment Today M79.652 - Pain in left thigh XR DEXA axial skeleton Today M81.0 - Age-related osteoporosis without current pathological fracture MM tomosynthesis screening BI Today Z12.31 - Encounter for screening mammogram for malignant neoplasm of breast Referrals Dermatology Referral D48.5 - Neoplasm of uncertain behavior of skin Lung Cancer Screening Referral F17.200 - Nicotine dependence, unspecified, uncomplicated
[2024-12-16 09:11] VITALS: BP 140/68; PULSE 88; RESP 14; TEMP 36.9; O2SAT 98; BMI 27.0
[2024-12-16 09:15] VITALS: BP 120/68
== END 2024-12-16 09:51 | disposition home or self-care (01) ==
LOC: HO.HMCFM 08:53
PROVIDERS: PCP Family Medicine; Visit Provider Family Medicine
DX: Z00.00 Encounter for general adult medical examination without abnormal findings (principal); E78.5 Hyperlipidemia, unspecified; D48.5 Neoplasm of uncertain behavior of skin; M79.652 Pain in left thigh; Z71.85 Encounter for immunization safety counseling; F17.200 Nicotine dependence, unspecified, uncomplicated; Z12.31 Encounter for screening mammogram for malignant neoplasm of breast; Z12.11 Encounter for screening for malignant neoplasm of colon; Z13.820 Encounter for screening for osteoporosis

== ENCOUNTER → 2024-12-16 08:53 | Outpatient (BNVA) | payer BC, SELFPAY | PROVIDERS: PCP Family Medicine; Visit Provider Family Medicine | DX: Z00.00 Encounter for general adult medical examination without abnormal findings (principal); E78.5 Hyperlipidemia, unspecified; D48.5 Neoplasm of uncertain behavior of skin; M79.652 Pain in left thigh; F17.210 Nicotine dependence, cigarettes, uncomplicated; Z79.899 Other long term (current) drug therapy; Z71.85 Encounter for immunization safety counseling; Z13.31 Encounter for screening for depression; Z13.30 Encounter for screening examination for mental health and behavioral disorders, unspecified | CPT/HCPCS: 96127 ==

== ENCOUNTER 2025-02-10 13:30 | Outpatient (REF) | payer BC, SELFPAY ==
--- NOTE | ~2025-02-10 | MM_ITS ---
EXAMINATION: DXA BONE DENSITY AXIAL HISTORY: M81.0 - Age-related osteoporosis without current pathological fracture TECHNIQUE: Breadcrumbtracking Dual energy absorptiometry (DEXA) of the lumbar spine, total left hip, and femoral neck was performed. COMPARISON: There are no prior studies for comparison. FINDINGS: The bone mineral density of the lumbar spine is 1.449 g/cm2, corresponding to a T-score of 2.2, and a Z-score of 3.7. This is indicative of normal bone mineral density. The bone mineral density of the left total hip is 0.972 g/cm2, corresponding to a T-score of -0.3, and a Z-score of 0.9. This is indicative of normal bone mineral density. The bone mineral density of the left femoral neck is 0.770 g/cm2, corresponding to a T-score of -1.9, and a Z-score of -0.5. This is indicative of osteopenia. FRACTURE RISK: The FRAX index suggests a risk of major osteoporotic fracture of 11.1%, and of hip fracture 2.7%. MM/XR DEXA axial skeleton IMPRESSION: Based on bone mineral density, and according to World Health Organization (WHO) criteria, the diagnosis is consistent with osteopenia. Statistically, 68% of repeat scans fall within 1 SD (+/- 0.010 g/cm2 for AP spine L1-L4) and 1 SD (+/- 0.012 g/cm2 for femur total) FRAX is a trademark of the [employer] [place] [employer] Met[employer], a World Health Organization (WHO) Collaborating Center. Electronically signed by: Manuel Lynn MD 02/10/2025 02:36 PM EDT
--- NOTE | ~2025-02-10 | MM_ITS ---
EXAMINATION: MM SCREENING DIGITAL BREAST TOMOSYNTHESIS, BILATERAL CLINICAL INFORMATION: Screening. Asymptomatic. COMPARISON: October 02, 2023 TECHNIQUE: Digital breast tomosynthesis is performed in both the craniocaudal and mediolateral oblique views along with computer-aided detection (CAD). FINDINGS: BREAST COMPOSITION: There are scattered areas of fibroglandular density (ACR BI-RADS breast composition Category b). BILATERAL BREASTS: No significant masses, suspicious calcifications or other abnormalities are seen in either breast. MM/MM tomosynthesis screening BI IMPRESSION: BILATERAL BREASTS: Negative, no mammographic evidence of malignancy. Normal interval follow-up is recommended in 12 months. ASSESSMENT: BI-RADS 1 - Negative RECOMMENDATION: Routine annual mammography screening. FOLLOW-UP: 1 year F/U This examination should not preclude the clinical evaluation of a suspicious palpable abnormality. This patient's information was entered into a reminder system with a target due date for their next mammogram. Electronically signed by: Klarissa Chavez MD 02/14/2025 03:05 PM EDT
== END 2025-02-10 13:31 | disposition home or self-care (01) ==
LOC: HO.MAMMO 13:30
PROVIDERS: PCP Family Medicine; Visit Provider Family Medicine
DX: Z12.31 Encounter for screening mammogram for malignant neoplasm of breast (principal); M81.0 Age-related osteoporosis without current pathological fracture
CPT/HCPCS: 77063; 77067; 77080

== ENCOUNTER → 2025-02-10 14:00 | Outpatient (BNV) | payer BC, SELFPAY | PROVIDERS: PCP Family Medicine; Visit Provider Radiology Diagnostic Radiology | DX: E28.39 Other primary ovarian failure (principal) | CPT/HCPCS: 77080 ==